=== PATIENT | female | born 1990 | race Caucasian/White ===

== ENCOUNTER → 2016-05-15 | Outpatient (CLI) | payer MEDICAID ==
[~2016-05-15] MED LIST: COLACE-DPS100 MG PO; MOTRIN-DPS800 MG PO; PRENATAL VITAM1 EAC4 PO
== END | disposition home or self-care (01) ==
LOC: RAD.S 16:20
DX: Z34.82 Encounter for supervision of other normal pregnancy, second trimester (principal); Z3A.20 20 weeks gestation of pregnancy